=== PATIENT | male | born 1950 | race African-American/Black ===

== ENCOUNTER 2017-10-11 15:46 | Observation (INO) | payer OTHER ==
--- NOTE | 2017-10-11 15:48 | ED Physician Documentation ---
General Adult - HISTORIAN Historian: patient - HPI Stated Complaint: change in ms Chief Complaint: General Adult Onset: days ago (1) Timing: still present Severity: moderate Further Comments: yes (Pt is a 67 yo male who was brought to ER by family after having fallen 6 times this am. Pt has not been able to keep his balance. Pt is diabetic and has been on Metformin 1000 mg bid, but started insulin, Lantus 10 units q am, 2 days ago. Pt had been drinking yesterday and fell when he came home. Pt continued to fall this am, however. Pt has hx CVA, hx head injury with craniotomy, and hx seizures. Pt drinks alcohol regularly.) - ROS CONST: other (pt cannot give reliable ROS) - PAST HX Past History: hypertension, other (CVA, DM, Seizure, HLD) Surgeries/Procedures: other (craniotomy) Allergies/Adverse Reactions: Allergies Allergy/AdvReac Type Severity Reaction Status Date / Time No Known Allergies Allergy Verified 12/03/15 16:48 Home Medications: Ambulatory Orders Medication Instructions Recorded Atorvastatin Calcium [Lipitor] 40 mg PO DAILY 10/27/14 Chlorthalidone [Thalitone] 25 mg PO QD 10/27/14 DULoxetine HCL [Cymbalta] 30 mg PO DAILY 10/27/14 Folic Acid [Folvite] 1 mg PO DAILY 10/27/14 Gabapentin [Neurontin] 600 mg PO TID 10/27/14 Lisinopril [Zestril] 40 mg PO DAILY 10/27/14 Metformin HCl [Glucophage] 1,000 mg PO BID 10/27/14 Potassium Chloride [Klor-Con M20] 40 meq PO DAILY 10/27/14 amLODIPine BESYLATE [Norvasc] 10 mg PO DAILY 10/27/14 - SOCIAL HX Smoking History: cigarettes Alcohol Use: heavy Drug Use: cocaine, marijuana, methamphetamines - FAMILY HX Family History: No (unk) - VITAL SIGNS Vital Signs: Vital Signs Temp Pulse Resp BP Pulse Ox 153/98 12/03/15 18:09 - REVIEWED ASSESSMENTS Nursing Assessment Reviewed: Yes Vitals Reviewed: Yes Progress - Progress Progress: CXR: Impression: 1. Atherosclerotic aorta with mild mediastinal widening. 2. No focal consolidation or pleural effusion. Minimal basilar atelectasis. Consider comparison with prior studies and follow up imaging. CT Head w/o contrast: Patient is post right frontoparietal craniotomy. The paranasal air sinuses and mastoid air cells are well aerated. Extensive dural calcification is present. No obvious acute intracranial hemorrhage. No midline shift. Cerebral atrophy with periventricular hypodensities of small vessel ischemic disease are present. These findings are most prominent in the left subcortical region and gibbons radiata. Impression: 1. No evidence of acute intracranial hemorrhage. No midline shift. Cerebral atrophy. Periventricular small vessel ischemic disease. Hypodensities are most prominent in the left periventricular region, in the left subcortical region and gibbons radiata. MRI evaluation may be consideredto exclude acute on chronic ischemia as relevant 3. Old right frontoparietal craniotomy. UDS non-neg for Marijuana, Cocaine, Amphetamine, Methamphetamine, Benzodiazepine (neg for opiates, phencyclidine, ecstasy, barbituates, methadone, tricyclics, oxycodone.) Pt appears intoxicated, somnolent, as from coming off stimulant drugs. ETOH < 10; CT with no obvious acute finding. Probable drug-related somnolence/lethargy. Banana Bag in ER Admit to Dr. Jose. - EKG/XRAY/CT EKG: NSR (HR=96; normal axis; normal VA interval; occasional PVC's.) General Adult Physical Exam - PHYSICAL EXAM GENERAL APPEARANCE: appears intoxicated EENT: eye inspection normal, pharynx normal NECK: normal inspection, supple RESPIRATORY: no resp distress, chest non-tender, breath sounds normal CVS: reg rate & rhythm, heart sounds normal ABDOMEN: soft, no organomegaly, normal bowel sounds BACK: normal inspection SKIN: warm/dry, normal color EXTREMITIES: non-tender, no evidence of injury, no edema NEURO: motor nml, disoriented, other (Pt appears intoxicated. Able to move all extemities; mumbled/slurred speech; when asked "what's wrong," he answered, mumbling, "You tell me." Pt follow commands disinterestedly as when asked to resist movements to test UE flexion/extension, he complies, but without appropriate effort. DTR's wnl. ) Discharge Clincal Impression: Drug abuse,, Probable drug-related somnolence/letharg Condition: Stable Disposition: ADMITTED INPATIENT Decision to Admit: [id number] Decision Time: 18:25
[2017-10-11 16:02] LABS: BASOPHILS % 0.4 (0.0-1.5); EOSINOPHILS % 1.9 % (0.0-6.8); MEAN CORPUSCULAR HEMOGLOBIN 28.9 pg (28.0-34.0); MEAN CORPUSCULAR VOLUME 89.1 fl (80.0-100.0); MONOCYTES % 9.5 % (0.0-11.0); NEUTROPHILS # 3.5 # k/uL (1.4-7.7)
[2017-10-11 16:14] LABS: eGFR (African) > 60; eGFR (Non-African) > 60
[2017-10-11] MEDS ORDERED: 0.9 % SODIUM CHLORIDE 1,000 ML IV ONE (17:54)
[2017-10-11] MEDS ORDERED: THIAMINE HCL 100 MG/ML 2ML VIAL ONE (17:54)
[2017-10-11] MEDS ORDERED: MULTIVIT INFUSN,ADULT 1,VIT K 10 ML VIAL IV ONE (17:54)
[2017-10-11] MEDS ORDERED: FOLIC ACID 5 MG/1 ML ONE (17:54)
[2017-10-11] MEDS ORDERED: THIAMINE HCL 100 MG, MULTIVIT INFUSN,ADULT 1,VIT K 10 ML, FOLIC ACID 5 MG in 0.9 % SODI... IV SCH (18:07)
[2017-10-11] MEDS ORDERED: ATORVASTATIN CALCIUM 80 MG TABLET PO ONE ×2 (19:16→22:46)
[2017-10-11 19:46] VITALS: BMI 25.0
[2017-10-11] MEDS ORDERED: NICOTINE 14mg PATCH.TD24 TD PRN (20:08)
[2017-10-11] MEDS ORDERED: LORazepam 0.5 MG TABLET PO PRN (20:08)
[2017-10-11] MEDS: ATORVASTATIN CALCIUM 80 MG TABLET PO SCH ×3 (20:31→23:19)
--- NOTE | 2017-10-11 20:36 | Diagnostic Imaging Report ---
MAGGY BARAHONA [facility] [address] [facility] [address] [address] Report Submission Date: Oct 11, 2017 4:47:49 PM CDT Patient Study Name: NUZHAT MONTANO Date: Oct 11, 2017 4:15:19 PM CDT Modality Type: DX Gender: M Description: CHEST : 52 Institution: [facility] Physician: MAGGY BARAHONA Single frontal view of the chest History: CHANGE IN MENTAL STATUS no comparison studies The patient is rotated Heart is normal in size. Aorta is atherosclerotic and tortuous. No focal consolidation or pleural effusion bibasilar atelectasis. No acute osseous pathology Impression: 1. Atherosclerotic aorta with mild mediastinal widening. 2. No focal consolidation or pleural effusion. Minimal basilar atelectasis. Consider comparison with prior studies and follow up imaging. Electronically signed on Oct 11, 2017 4:47:49 PM CDT by: Nuria WEBBER
--- NOTE | 2017-10-11 20:37 | Diagnostic Imaging Report ---
MAGGY BARAHONA [facility] [address] [facility] [address] [place], [place]. [address] Report Submission Date: Oct 11, 2017 5:02:56 PM CDT Patient Study Name: NUZHAT MONTANO Date: Oct 11, 2017 4:36:45 PM CDT Modality Type: CT\SR Gender: M Description: CT BRAIN W/O CONTRAST : 52 Institution: [facility] Physician: MAGGY BARAHONA CT head History: MENTAL STATUS CHANGE No comparison studies are available Patient is post right frontoparietal craniotomy The paranasal air sinuses and mastoid air cells are well aerated. Extensive dural calcification is present. No obvious acute intracranial hemorrhage. No midline shift. Cerebral atrophy with periventricular hypodensities of small vessel ischemic disease are present. These findings are most prominent in the left subcortical region and gibbons radiata Impression: 1. No evidence of acute intracranial hemorrhage. No midline shift. Cerebral atrophy. Periventricular small vessel ischemic disease. Hypodensities are most prominent in the left periventricular region, in the left subcortical region and gibbons radiata. MRI evaluation may be consideredto exclude acute on chronic ischemia as relevant 3. Old right frontoparietal craniotomy Electronically signed on Oct 11, 2017 5:02:56 PM CDT by: Nuria WEBBER
[2017-10-11] MEDS ORDERED: ACETAMINOPHEN 500 MG TABLET ONE (22:47)
[2017-10-11] MEDS ORDERED: LORazepam 0.5 MG TABLET ONE (22:54)
[2017-10-11] MEDS: ACETAMINOPHEN 500 MG TABLET PO PRN (23:19)
[2017-10-11 23:41] VITALS: BP 175/95
[2017-10-12] MEDS ORDERED: amLODIPine BESYLATE 5 MG TABLET ONE (02:01)
[2017-10-12] MEDS ORDERED: GABAPENTIN 300 MG CAPSULE ONE (02:01)
[2017-10-12] MEDS ORDERED: DULoxetine HCL 30 MG CAPSULE.DR PO ONE (02:01)
[2017-10-12] MEDS ORDERED: POTASSIUM CHLORIDE 20 MEQ TABLET.ER ONE (02:01)
[2017-10-12] MEDS ORDERED: LISINOPRIL 20 MG TABLET ONE (02:02)
[2017-10-12] MEDS ORDERED: 0.9 % SODIUM CHLORIDE 1,000 ML IV SCH (05:00)
[2017-10-12 07:04] LABS: BASOPHILS % 1.3 (0.0-1.5); MEAN CORPUSCULAR HEMOGLOBIN 29.3 pg (28.0-34.0); MEAN CORPUSCULAR VOLUME 90.8 fl (80.0-100.0); MONOCYTES % 8.4 % (0.0-11.0); NEUTROPHILS # 2.4 # k/uL (1.4-7.7)
[2017-10-12 07:17] LABS: eGFR (African) > 60; eGFR (Non-African) > 60
[2017-10-12 07:21] LABS: CANNABINOIDS NON NEGATIVE ng/mL (< 50); METHYLENEDIOXYMETHAMPHETAMINE NEGATIVE ng/mL (<500)
[2017-10-12 07:23] LABS: APPEARANCE,URINE CLOUDY (CLEAR); COLOR,URINE YELLOW (YELLOW); OCCULT BLOOD,URINE TRACE-INTACT (NEGATIVE)
[2017-10-12] MEDS: INSULIN REGULAR, HUMAN 100 UNIT/ML 3ML VIAL SQ SCH ×2 (07:30→11:00)
[2017-10-12] MEDS: GABAPENTIN 300 MG CAPSULE PO SCH ×2 (07:30→12:00)
[2017-10-12] MEDS ORDERED: POTASSIUM CHLORIDE 20 MEQ TABLET.ER PO SCH (09:00)
[2017-10-12] MEDS ORDERED: LISINOPRIL 20 MG TABLET PO SCH (09:00)
[2017-10-12] MEDS ORDERED: amLODIPine BESYLATE 5 MG TABLET PO SCH (09:00)
[2017-10-12] MEDS ORDERED: DULoxetine HCL 30 MG CAPSULE.DR PO SCH (09:00)
--- NOTE | 2017-10-12 13:01 | Discharge Summary ---
Discharge Summary - Discharge Sumary History of Present Illness: 67-year-old -Algerian male who was accompanied to the ED by his sister. Patient was reported to have fallen several times today. Patient does have some gait to student to begin with but seem to be worse. In the ED patient appeared to be intoxicated. Alcohol level was within normal range. However patient drug screen did come back for polysubstances. Will will admit for further evaluation and possible alocohol withdrawal. Condition at Discharge: Stable Home Medications: Ambulatory Orders Medication Instructions Recorded Atorvastatin Calcium [Lipitor] 40 mg PO DAILY 10/27/14 Chlorthalidone [Thalitone] 25 mg PO QD 10/27/14 DULoxetine HCL [Cymbalta] 30 mg PO DAILY 10/27/14 Folic Acid [Folvite] 1 mg PO DAILY 10/27/14 Gabapentin [Neurontin] 600 mg PO TID 10/27/14 Lisinopril [Zestril] 40 mg PO DAILY 10/27/14 Metformin HCl [Glucophage] 1,000 mg PO BID 10/27/14 Potassium Chloride [Klor-Con M20] 40 meq PO DAILY 10/27/14 amLODIPine BESYLATE [Norvasc] 10 mg PO DAILY 10/27/14 Consultations this Visit: None Procedures this Visit: None Allergies/Adverse Reactions: Allergies Allergy/AdvReac Type Severity Reaction Status Date / Time No Known Allergies Allergy Verified 12/03/15 16:48 Discharge Summary: Patient had a CT scan of the brain which shows an old right frontal parietal craniotomy. Patient was noted to have some hypotensive areas in the left. periventricular region. On laboratory evaluation patient was noted to have elevated liver function tests. AST and ALT were 87 and 75 respectively. Patient is urine drug screen tested positive for amphetamines benzodiazepine cocaine and marijuana. After admission to the hospital patient stated did seem to improve. Patient did have some mild peripheral neuropathy that may have contributed some to his gait dysfunction. At the time to discharge patient was able to ambulate some better without the assistance of a walker or cane. Patient wanted to be discharged home and have further diagnostic testing done as an outpatient. Patient was advised that there was some mild abnormalities with a CT scan that required further evaluation with an MRI scan. Patient was encouraged to stop using illicit drugs. Patient was advised that his alcohol consumption is causing some possible early cirrhosis of the liver.Patient will follow up with his PCP. - Final Diagnosis (1) Gait disturbance Problems: Patient seem to be doing better at the time of discharge. He was still a little ataxic with his gait. Did not appear to need assistance at thsi time with cane or walker. (2) Intoxication by drug Problems: improved (3) Alcohol dependence Problems: stable with no withdrawal symptoms at this time.
--- NOTE | 2017-10-12 13:02 | History and Physical Report ---
History of Present Illnes - History of Present Illness Reason for Visit: gait disturbance History of Present Illness: 67-year-old -[place] male who was accompanied to the ED by his sister. Patient was reported to have fallen several times today. Patient does have some gait to student to begin with but seem to be worse. In the ED patient appeared to be intoxicated. Alcohol level was within normal range. However patient drug screen did come back for polysubstances. 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 ) Gastrointestinal: Constipation Hepatobiliary: denies: Cirrhosis Psych: Anxiety - Past Surgical History Past Surgical History: Other (craniotomy, ? aneurysm clipping) - Past Family History Mother Family History: (80s unknown cause) Father Family History: (80s unknown cause) - Past Social History Smoke: # pack years (70), 2 packs per day Occupation: disbled Alcohol: Heavy (1 case of beer and/or 1/5th of [employer]) Drugs: Cocaine, Marijuana Lives: With Family Domestic Violence: Negative - Health Maintenance Health Maintenance: denies: Cholesterol, Tetanus, Influenza Vaccine, Pneumococcal Vaccine Influenza Vaccine: No Pneumonia Vaccine: No Resuscitation Status: Resusciation Status Resuscitation Status Full Code - Unable to Obtain History Unable to Obtain: No Review of Systems - Review of Systems Constitutional: negative: Fever, Chills, Sweats Eyes: negative: vision change ENT: negative: Ear Pain, Ear Discharge, Nose Pain, Nose Discharge, Nose Congestion, Mouth Pain, Throat Pain, Throat Swelling Respiratory: Shortness of Breath (mild), SOB with Excertion. negative: Cough, Hemoptysis, Sputum Cardiovascular: negative: Chest Pain, Orthopnea, Light Headedness Gastrointestinal: negative: Nausea, Vomiting, Abdominal Pain, Diarrhea, Constipation Genitourinary: negative: Dysuria, Frequency Musculoskeletal: negative: Neck Pain, Back Pain Skin: negative: Rash Neurological: Weakness, Incoordination, Confusion. negative: Numbness, Change in Speech, Seizures - Medications/Allergies Allergies/Adverse Reactions: Allergies Allergy/AdvReac Type Severity Reaction Status Date / Time No Known Allergies Allergy Verified 12/03/15 16:48 Current Inpatient Medications: Current Inpatient Medications Acetaminophen (Tylenol Extra Strength) 500 mg PO Q4H PRN PRN Reason: PAIN Last Admin: 10/11/17 23:19 Dose: 500 mg Amlodipine Besylate (Norvasc) 10 mg PO DAILY [facility] Atorvastatin Calcium (Lipitor) 40 mg PO HS [facility] Last Admin: 10/11/17 23:19 Dose: 40 mg Duloxetine HCl (Cymbalta) 30 mg PO DAILY [facility] Gabapentin (Neurontin) 600 mg PO TID [facility] Stop: 10/17/17 23:59 Sodium Chloride (Normal Saline) 1,000 mls @ 100 mls/hr IV Q10H [facility] Stop: 10/17/17 23:59 Last Admin: 10/12/17 06:21 Dose: Not Given Insulin Human Regular (Humulin R) 0 - 12 unit SQ CHEMX3 [facility] PRN Reason: Protocol Lisinopril (Prinivil) 40 mg PO DAILY [facility] Stop: 10/17/17 23:59 Lorazepam (Ativan) 0.5 mg PO Q6H PRN PRN Reason: Anxiety Last Admin: 10/11/17 23:19 Dose: 0.5 mg Metformin HCl (Glucophage) 1,000 mg PO BID [facility] Last Admin: 10/11/17 23:19 Dose: 1,000 mg Miscellaneous (Chem Sticks) 1 each MC CHEMQID [facility] Last Admin: 10/12/17 01:12 Dose: 1 each Nicotine (Habitrol 14mg) patch TD DAILY PRN PRN Reason: nicotine withdraw Potassium Chloride (Klor-Con M20) 40 meq PO DAILY [facility] Exam - Exam Vital Signs: Vital Signs (72 hours) 10/11/17 10/11/17 10/11/17 18:53 19:00 22:53 Temperature 97.0 F L 97.0 F L Pulse Rate [ 88 88 93 H Pulse ox] Respiratory 16 16 18 Rate Blood Pressure 151/101 151/101 [Left Arm] O2 Sat by Pulse 98 98 Oximetry 10/11/17 10/12/17 10/12/17 23:00 02:00 06:00 Temperature Pulse Rate [ 93 H Pulse ox] Respiratory 18 18 18 Rate Blood Pressure 175/95 [Left Arm] O2 Sat by Pulse 99 Oximetry General: Alert, Oriented to Person, Oriented to Place, Cooperative, No acute distress. No: Oriented to Time HEENT: Atraumatic, PERRLA, Mouth Mucous membr. moist/[place], Nose Mucous membr. moist/[place] Neck: Normal Range of Motion. No: Stridor, Rigidity, Lymphadenopathy Carotids: wnl Thyroid: WNL Lungs: Clear to auscultation, Normal air movement, Speaks full Sentences. No: Respiratory Distress, Wheezes, Rales, Rhonchi Cardiovascular: Regular rate, Normal S1, Normal S2, No murmurs Abdomen: Normal bowel sounds, Soft, No tenderness, No hepatospenomegaly, No masses, Hepatomegaly (mild). No: Distended Integumentary: Normal, [place], Warm, Dry Extremities: No clubbing, No cyanosis, No edema, Normal pulses Neurological: Normal speech, Strength Equal Bilat, Normal tone, Sensation intact , Cranial nerves 3-12 NL. No: Normal gait (ataxic) Psych/Mental Status: Mental status NL, Mood NL, Appropriate Affect, Intact Judgment - Laboratory Results Laboratory Results: Laboratory Results 10/12/17 10/12/17 10/12/17 06:55 06:55 07:20 WBC 4.50 RBC 4.47 Hgb 13.1 Hct 40.6 MCV 90.8 MCH 29.3 MCHC 32.3 RDW 13.7 Plt Count 169 Neut % (Auto) 54.9 Lymph % (Auto) 28.9 [place] % (Auto) 8.4 Eos % (Auto) 4.0 Baso % (Auto) 1.3 Neut # (Auto) 2.4 Lymph # (Auto) 1.3 [place] # (Auto) 0.4 Eos # (Auto) 0.2 Baso # (Auto) 0.1 Reactive Lymphs % 2.5 Reactive Lymphs # 0.1 Sodium 140 Potassium 3.3 L Chloride 108 H Carbon Dioxide 23 BUN 16 Creatinine 0.70 Estimated Creat Clear 129 Est GFR ( Amer) > 60 Est GFR (Non-Af Amer) > 60 Glucose 118 H Calcium 8.6 Total Bilirubin 0.3 AST 87 H ALT 75 H Alkaline Phosphatase 89 Total Protein 7.1 Albumin 3.2 L Opiates Screen Negative Oxycodone Screen Negative Methadone Screen Negative Ur Barbiturates Screen Negative Tricyclic Antidepress Negative Phencyclidine Screen Negative Amphetamines Screen Non negative H U Methamphetamines Scrn Non negative H MDMA Negative Benzodiazepines Screen Non negative H Urine Cocaine Screen Non negative H U Cannabinoids Screen Non negative H Assessment/Plan - Assessment/Plan (1) Gait disturbance Status: Acute Assessment: suspect due to some peripheral neuropathy and intoxication. Will recheck gait in AM after drugs have worn off some. (2) Intoxication by drug Status: Acute Assessment: Await drug conformation (3) Tobacco dependence Status: Chronic (4) Alcohol dependence Status: Chronic Qualifiers: Substance use status: other alcohol-induced disorder Qualified Code(s): F10.288 - Alcohol dependence with other alcohol-induced disorder Assessment: no withdrawal symptoms at this time. VTE Assessment - RISK FACTOR SCORE VTE RISK FACTOR SCORES: AGE OVER 60 YEARS - RISK VTE LOW RISK: SCORE OF 1 OR LESS (RISK PROXIMAL DVT 0.4%) NO PROPHYLAXIS NEEDED
[2017-10-12] MEDS ORDERED: ACETAMINOPHEN 500 MG TABLET ONE (13:30)
[2017-10-12] MEDS: ACETAMINOPHEN 500 MG TABLET PO PRN (13:32)
[2017-10-16 12:15] LABS: CANNABINOIDS CONFIRMATION >150 ng/mL (<15)
== END 2017-10-12 14:10 | disposition home or self-care (01) ==
LOC: ED 15:46 → SOUTH 18:25
PROVIDERS: ADMIT Family Medicine; ATTEND Family Medicine
DX: F10.288 Alcohol dependence with other alcohol-induced disorder (principal); I10 Essential (primary) hypertension; R26.9 Unspecified abnormalities of gait and mobility; F17.210 Nicotine dependence, cigarettes, uncomplicated; F12.90 Cannabis use, unspecified, uncomplicated; F14.929 Cocaine use, unspecified with intoxication, unspecified
CPT/HCPCS: 36415; 51701; 70450; 71045; 80053; 80320; 80377; 81002; 82550; 83880; 84484; 85025; 93005; A9270; G0378; J3411; J3490; J7030; 99217; 99218; G0480; G0481; S1016

== ENCOUNTER 2019-04-30 12:11 | Emergency (ER) | payer OTHER ==
--- NOTE | 2019-04-30 12:21 | ED Physician Documentation ---
General Adult - HISTORIAN Historian: patient - HPI Stated Complaint: left sided weakness Chief Complaint: General Adult Additional Information: Patient presents to ED with a 3-4 day history of left sided weakness. Patient has a history of hemorrhagic CVA in the past. Blood sugar on presentation 538. Patient drinks alcohol daily and smokes several packs of cigarettes daily. He denies any weakness in arms, legs. No difficulty with speech, no difficulty with swallowing, no facial droop. Onset: days ago (4) Timing: still present Severity: moderate - ROS CONST: denies: fever EYES/ENT: problems with vision CVS/RESP: denies: shortness of breath GI/: denies: vomiting, nausea MS/SKIN/LYMPH: none NEURO/PSYCH: tingling, numbness (left sided) - PAST HX Past History: COPD, other (seizure disorder) Other History: diabetes Type 2 Surgeries/Procedures: other (ortho) Allergies/Adverse Reactions: Allergies Allergy/AdvReac Type Severity Reaction Status Date / Time No Known Allergies Allergy Verified 04/30/19 12:28 Home Medications: Ambulatory Orders Medication Instructions Recorded Atorvastatin Calcium [Lipitor] 40 mg PO DAILY 10/27/14 Chlorthalidone [Thalitone] 25 mg PO QD 10/27/14 DULoxetine HCL [Cymbalta] 30 mg PO DAILY 10/27/14 Folic Acid [Folvite] 1 mg PO DAILY 10/27/14 Gabapentin [Neurontin] 600 mg PO TID 10/27/14 Lisinopril [Zestril] 40 mg PO DAILY 10/27/14 Metformin HCl [Glucophage] 1,000 mg PO BID 10/27/14 Potassium Chloride [Klor-Con M20] 40 meq PO DAILY 10/27/14 amLODIPine BESYLATE [Norvasc] 10 mg PO DAILY 10/27/14 - SOCIAL HX Smoking History: cigarettes, greater than 1 pack/day Alcohol Use: heavy Drug Use: none - FAMILY HX Family History: No - VITAL SIGNS Vital Signs: Vital Signs Temp Pulse Resp BP Pulse Ox 175/95 10/11/17 23:00 - REVIEWED ASSESSMENTS Nursing Assessment Reviewed: Yes Vitals Reviewed: Yes Progress - Progress Progress: 1423 Discussed with [facility] for transfer. Awaiting call back. [address] Ann, family medicine, recommends admission to Neurology [address] Alvarez, neurology, recommends admission to medicine. He does not think this is a stroke based on symptoms and with no weakness. Recommends metabolic correction with further work up including MRI at a later date if symptoms persist. [address] Ann, he states he doesnt typically admit for hypokalmia, hyperglycemia and elevated blood pressure. And since Dr. Alvarez does not believe this is a stroke, Dr. Ann states he can be followed up on outpatient basis by Dr. Morelos his PCP. 1520 RN called sister to have patient picked up. During phone call patient has seizure. Sister reports patient has a history of seizure disorder but thinks he was taken off his medications some time ago. 1523 Patient having tonic clonic seizure. Will give Ativan. Start Keppra 1536 Discussed with farhan Peña at [facility] for transfer. Awaiting call back 1551 Dr. Hills agrees to accept transfer to the ED. ED Results Lab/Radiology - Radiology Radiology Impressions: Report Submission Date: Apr 30, 2019 12:35:25 PM RUG DESIGNER Patient Study Name: NUZHAT MONTANO Date: Apr 30, 2019 12:15:43 PM RUG DESIGNER Modality Type: CT\SR Gender: M Description: CT BRAIN W/O CONTRAST : 52 Institution: [facility] Physician: YANCY COTTON Examination: CT head without contrast History: PT STATES: TROUBLE TALKING X 2DAYS WITH LT SIDE WEAKNESS Comparison exam: 11 October 2017 Technique: Noncontrast head CT protocol. Findings: Ventricles and sulci are prominent, though consistent for patient age. Cerebrocerebellar parenchyma demonstrates periventricular low attenuation consistent with small vessel disease. No evidence for parenchymal hemorrhage. No evidence for mass or mass effect. No midline shift. No extra axial fluid collections. Partial visualization of the paranasal sinuses, mastoid air cells, orbits and scalp without gross irregularity. Prior right sided craniotomy surgical changes. Impression: Stable age related changes. No acute parenchymal process. No hemorrhage. Prior right sided craniotomy surgical changes. Electronically signed on Apr 30, 2019 12:35:25 PM RUG DESIGNER by: Neville Maher - Orders Orders: ED Orders Category Date Time Status CT BRAIN W/O CONTRAST Stat Exams 04/30/19 Ordered CBC/PLATELET/DIFF Routine Lab 04/30/19 Ordered CMP Routine Lab 04/30/19 Ordered LIPID PANEL Routine Lab 04/30/19 Ordered PT-INR Routine Lab 04/30/19 Ordered General Adult Physical Exam - PHYSICAL EXAM GENERAL APPEARANCE: no distress EENT: eye inspection normal, [place], other (episodic left lateral gaze) NECK: normal inspection, supple RESPIRATORY: no resp distress, other (dminished bilaterally) CVS: reg rate & rhythm ABDOMEN: soft, normal bowel sounds, no distension, non-tender BACK: normal inspection SKIN: warm/dry EXTREMITIES: non-tender, no evidence of injury NEURO: oriented X3, motor nml (no weakness upper or lower extremities. ), mood/affect nml Discharge Clincal Impression: Hypokalemia, Hyperglycemia, Accelerated hypertension, Seizures Referrals: Jerry Jose MD [Primary Care Provider] - 2 Days Comments: [facility] to [facility] ED. Condition: Stable Disposition: XFER SHT-TRM HOSP Decision to Admit: NO Date of Decison to Admit: 04/30/19 Decision Time: 15:51
[2019-04-30 12:26] LABS: BASOPHILS % 0.6 % (0.0-1.5)
[2019-04-30 12:37] LABS: HDL 27 mg/dL (>40); eGFR (Non-African) > 60
--- NOTE | 2019-04-30 12:41 | Diagnostic Imaging Report ---
PATIENT MR#: [id number] PATIENT PATIENT NAME: NUZHAT MONTANO DATE OF : 1950 REFERRING PHYSICIAN: Katey Arredondo EXAM DATE: 04/30/2019 ACCESSION NUMBER: [id number] EXAM DESCRIPTION: CT BRAIN W/O CONTRAST Examination: CT head without contrast History: PT STATES: TROUBLE TALKING X 2DAYS WITH LT SIDE WEAKNESS Comparison exam: 11 October 2017 Technique: Noncontrast head CT protocol. Findings: Ventricles and sulci are prominent, though consistent for patient age. Cerebrocerebellar pa renchyma demonstrates periventricular low attenuation consistent with small vessel disease. No evidence for pa renchymal hemorrhage. No evidence for mass or mass effect. No midline shift. No extra axial fluid collections. Partial visualization of the paranasal sinuses, mastoid air cells, orbits and scalp without gross irregularit y. Prior right sided craniotomy surgical changes. Impression: Stable age related changes. No acute parenchymal process. No hemorrhage. Prior right side d craniotomy surgical changes. Read by: Dr. Neville Maher Transcribed by: Transcribed Date: Electronically signed by: Dr. Neville Maher Date signed: 04/30/2019 12:40:39 PM
[2019-04-30] MEDS: POTASSIUM CHLORIDE 40 MEQ/NS 1,000 ML IV ONE (12:42)
[2019-04-30] MEDS: INSULIN REGULAR, HUMAN 100 UNIT/ML 10ML VIAL SQ ONE ×2 (12:57→13:59)
[2019-04-30] MEDS: hydrALAZINE HCL 20 MG/1 ML IVP ONE ×2 (13:46→14:35)
[2019-04-30] MEDS: ASPIRIN 81 MG CHEW TAB PO ONE (13:46)
[2019-04-30] MEDS: LORazepam 2 MG/ML VIAL IV ONE (15:42)
[2019-04-30] MEDS: POTASSIUM CHLORIDE 20 MEQ TABLET.ER PO ONE (15:52)
[2019-04-30] MEDS: SODIUM CHLORIDE 0.9% IV ONE (15:52)
[2019-04-30] MEDS ORDERED: 0.9 % SODIUM CHLORIDE 100 ML IV.SOLN IV ONE (15:52)
[2019-04-30] MEDS: LEVETIRACETAM IV ONE (15:52)
[2019-04-30 16:58] VITALS: BP 136/92
== END 2019-04-30 16:43 | disposition short-term general hospital (02) ==
LOC: ED 12:11
DX: E87.6 Hypokalemia (principal); R73.9 Hyperglycemia, unspecified; I10 Essential (primary) hypertension; R56.9 Unspecified convulsions
CPT/HCPCS: 70450; 80053; 80061; 85025; 85610; 93005; 96365; 96366; 96368; 96375; 96376; 99282; 99284; J0360; J1815; J2060; J3480; S1016